=== PATIENT | female | born 1985 | race African-American/Black ===

== ENCOUNTER 2018-01-05 23:56 | Inpatient (IN) | payer MEDICAID ==
[~2018-01-05] VITALS: Ht 167.6 cm; Wt 118.8 kg
[2018-01-06] MEDS ORDERED: PREN-142 PO (01:24)
[2018-01-06] MEDS ORDERED: DEXT 5%/LR + PITOCIN 20UNITS/L 1,000 ML IV SCH (01:38)
[2018-01-06] MEDS ORDERED: DIPHENHYDRAMINE 25MG CAPSULE PO PRN (01:45)
[2018-01-06] MEDS ORDERED: METHYLERGONOVINE MALEATE 0.2 MG/ML IM PRN (01:45)
[2018-01-06] MEDS ORDERED: BENZOCAINE/LANOLIN/ALOE VERA SPRAY TOP PRN (01:45)
[2018-01-06] MEDS ORDERED: HEMORRHOIDAL SUPP PR PRN (01:45)
[2018-01-06] MEDS ORDERED: GLYCERIN/WITCH HAZEL LEAF MEDICATED PAD TOP PRN (01:45)
[2018-01-06] MEDS ORDERED: IBUPROFEN 400MG TABLET PO PRN (01:45)
[2018-01-06] MEDS: IBUPROFEN 800MG TABLET PO PRN ×3 (02:16→18:54)
[2018-01-06 03:15] VITALS: BP 128/72
[2018-01-06] MEDS ORDERED: RHO(D) IMMUNE GLOBULIN 300 MCG/SYR IM ONE (03:15)
[2018-01-06 03:19] LABS: BASOPHILS % 0.5 % (0.0-2.0); HEMATOCRIT. 33.6 % (36.0-48.0); HEMOGLOBIN. 11.3 g/dL (12.0-16.0); LYMPHOCYTES % 11.8 % (20.0-50.0); MEAN CORPUSCULAR HEMOGLOBIN 30.1 pg (28.0-32.0); MEAN CORPUSCULAR VOLUME 89.3 fL (81.0-99.0); MEAN PLATELET VOLUME 12.1 fl (7.4-10.4); MONOCYTES % 4.5 % (2.0-8.0); NEUTROPHILS % 83.2 % (40.0-76.0); PLATELET 134 x1000/uL (130-400); RED BLOOD CELL COUNT 3.77 mill/uL (4.2-5.4); RED CELL DISTRIBUTION WIDTH 12.9 % (11.6-14.6)
[2018-01-06 03:28] LABS: PARTIAL THROMBOPLASTIN TIME 26.8 sec (23.4-31.0)
[2018-01-06 03:43] LABS: CLARITY URINE TURBID (CLEAR); COLOR URINE RED (YELLOW); KETONES URINE 1+ (NEGATIVE); LEUKOCYTE ESTERASE URINE 2+ (NEGATIVE); NITRITE URINE NEGATIVE (NEGATIVE); OCCULT BLOOD URINE 3+ (NEGATIVE); PH URINE 5.5 (4.5-8.0); PROTEIN URINE 1+ (NEGATIVE); SPECIFIC GRAVITY URINE 1.022 (1.005-1.030)
[2018-01-06 04:11] LABS: *AMPHETAMINES SCREEN URINE NEGATIVE (NEGATIVE); *BARBITURATES SCREEN URINE NEGATIVE (NEGATIVE); *BENZODIAZEPINES SCREEN URINE NEGATIVE (NEGATIVE); *COCAINE SCREEN URINE NEGATIVE (NEGATIVE); METHADONE URINE SCREEN NEGATIVE (NEGATIVE); OPIATES URINE SCREEN NEGATIVE (NEGATIVE)
[2018-01-06 04:12] LABS: CANNABINOID URINE SCREEN NEGATIVE (NEGATIVE); PHENCYCLIDINE URINE SCREEN NEGATIVE (NEGATIVE)
[2018-01-06 04:30] VITALS: BP 118/57
[2018-01-06 06:44] LABS: HEPATITIS B SURFACE ANTIGEN NEGATIVE
[2018-01-06 08:00] VITALS: BP 134/61
[2018-01-06] MEDS: PRENATAL VIT/FE FUMARATE/FA TABLET PO SCH (10:24)
[2018-01-06] MEDS: SIMETHICONE 80MG TABLET CHEW PO SCH ×3 (10:25→21:12)
[2018-01-06 16:39] VITALS: BP 127/63
[2018-01-06 19:20] VITALS: BP 115/63
[2018-01-06 22:20] VITALS: BP 90/53
[2018-01-07 08:00] VITALS: BP 114/80
[2018-01-07] MEDS: PRENATAL VIT/FE FUMARATE/FA TABLET PO SCH (10:27)
[2018-01-07] MEDS: SIMETHICONE 80MG TABLET CHEW PO SCH (10:27)
== END 2018-01-07 13:15 | disposition home or self-care (01) | DRG 561 ==
LOC: L&D 23:56 → OBSVTOIN 23:56 → 7EST PP/OB 01-06 03:15
PROVIDERS: ADMIT Specialist; ATTEND Specialist
DX: Z39.0 Encounter for care and examination of mother immediately after delivery (principal); O98.33 Other infections with a predominantly sexual mode of transmission complicating the puerperium; A63.0 Anogenital (venereal) warts
CPT/HCPCS: 36415; 80305; 86592; 86703; 86762; 86850; 86900; 87340; 99281; J2590